=== PATIENT | female | born 1950 | race Caucasian/White ===

== ENCOUNTER → 2017-08-02 | Outpatient (CLI) | payer OTHER ==
[~2017-08-02] MED LIST: ABL5 PO; ADVIN25/60 INH; ALBUAER9 INH; BACLPOW PO; CALC500C70 PO; CHOL200010 PO; CITA40TA12 PO; CLEM2.68 PO; CLON1TAB3 PO; CLOP1TAB5 PO; CYAN1TAB2 SC; EZET10TA41 PO; FURO40TA3 PO; GABA600T PO; HYDR-3419 PO; LEVO112T2 PO; METO25TA3 PO; MONT1TAB3 PO; NXM/40 PO; POTA-335 PO; RANI300T2 PO; ROFL1TAB5 PO; TIOTCAP INH; TOPI100T20 PO
[2017-08-02 13:37] LABS: HEMATOCRIT 38.6 % (37-47); MEAN CORPUSCULAR HEMOGLOBIN 31.7 pg (25-34); MEAN CORPUSCULAR HGB CONC 32.6 g/dl (32-36); MEAN PLATELET VOLUME 9.8 fL (7.4-10.4); PLATELET COUNT 258 K/uL (130-400); RED BLOOD COUNT 3.98 M/uL (4.2-5.4); WHITE BLOOD COUNT 6.73 K/uL (4.8-10.8)
[2017-08-02 14:59] LABS: ALT/SGPT 14 U/L (12-78); BLOOD UREA NITROGEN 19 mg/dl (7-18); BUN/CREATININE RATIO 22.1 (10-20); CALCIUM 8.6 mg/dl (8.5-10.1); CARBON DIOXIDE 25 mmol/L (21-32); CHLORIDE 108 mmol/L (98-107); CREATININE 0.86 mg/dl (0.60-1.20); GLUCOSE 93 mg/dl (70-99); POTASSIUM 4.7 mmol/L (3.5-5.1); SODIUM 141 mmol/L (136-145)
[2017-08-02 15:11] LABS: AST/SGOT 7 U/L (15-37); CHOLESTEROL 133 mg/dl (0-200); CHOLESTEROL/HDL RATIO 3.4; HDL CHOLESTEROL 39 mg/dl; LDL CHOLESTEROL CALCULATED 71 mg/dl; TRIGLYCERIDES 115 mg/dl (0-150); VERY LOW DENSITY LIPOPROT CALC 23 mg/dl
== END | disposition home or self-care (01) ==
LOC: C.LABMFLN 11:34
PROVIDERS: ATTEND Internal Medicine Cardiovascular Disease
DX: E78.5 Hyperlipidemia, unspecified (principal); I34.0 Nonrheumatic mitral (valve) insufficiency; Z98.890 Other specified postprocedural states; I42.9 Cardiomyopathy, unspecified

== ENCOUNTER → 2018-03-06 | Outpatient (CLI) | payer OTHER ==
[2018-03-06 13:48] LABS: BLOOD UREA NITROGEN 18 mg/dl (7-18); CALCIUM 8.4 mg/dl (8.5-10.1); CARBON DIOXIDE 25 mmol/L (21-32); CREATININE 0.79 mg/dl (0.60-1.20); GLUCOSE 100 mg/dl (70-99); POTASSIUM 4.5 mmol/L (3.5-5.1); SODIUM 140 mmol/L (136-145)
== END | disposition home or self-care (01) ==
LOC: C.LABMFLN 10:06
PROVIDERS: ATTEND Physician Assistant
DX: I42.9 Cardiomyopathy, unspecified (principal)

== ENCOUNTER 2021-06-18 09:50 | Observation (INO) ==
[2021-06-18] MEDS ORDERED: LIDOCAINE 1% LOCAL 20 ML VIAL ONE (11:07)
[2021-06-18] MEDS ORDERED: VANCOMYCIN HCL 1000MG/20ML VIAL ONE (11:07)
[2021-06-18] MEDS ORDERED: WATER, STERILE FOR INJ 10 ML VIAL ONE (11:07)
[2021-06-18] MEDS ORDERED: BUPIVACAINE 0.25% 30 ML VIAL ONE (11:08)
[2021-06-18] MEDS ORDERED: MIDAZOLAM HCL 1 MG/ML 2ML VIAL ONE ×2 (11:40→12:13)
[2021-06-18] MEDS ORDERED: fentaNYL citrate 100 MCG/2 ML VIAL ONE (11:40)
--- NOTE | 2021-06-18 11:48 | History & Physical Report ---
Date of Service June 18, 2021 Assessment & Plan (1) Cardiomyopathy: Plan: 1. Nonischemic cardiomyopathy: She has a longstanding history of reduced LV systolic function. Her current degree of LV dysfunction puts her in a category of patients who may benefit from a prophylactic ICD. Her ejection fraction is less than 35%. His [place] heart Association class 2 symptoms. He has not had revascularization in the past 90 days or suffered a myocardial infarction in the past 45 days. She has an anticipated longevity greater than 1 year. 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 We had a conversation regarding the utility of a prophylactic ICD. We discussed the risks of the procedure as well as the option of not undergoing implant and the implications. At this point she seems interested in having the device pl aced in will make the appropriate arrangements for a single-chamber ICD. 2. Shortness of breath: She appears euvolemic. . 3. Mitral valve regurgitation s/p annuloplasty ring: Recent echo showed mitral valvular annuloplasty ring with mild MR. Will continue to monitor over time. SBE prophylaxis. 4. Dyslipidemia: Continue statin therapy. 5. Tobacco abuse: She quit smoking in 2019. 6. Hypertension: Blood pressure well controlled. Continue metoprolol. 7. TIA: Patient states she has had some cerebrovascular events and I suspect this is the indication for clopidogrel. History of Present Illness Chief Complaint: Dyspnea Primary Care Provider: RADHA Balderrama 71 year old woman with a history of a non-ischemic cardiomyopathy presents for an ICD implant Allergies Allergy/AdvReac Type Severity Reaction Status Date / Time acetaminophen Allergy Mild GI SYMPTOMS Verified 06/01/21 11:09 codeine Allergy Unknown rash and Verified 06/01/21 11:09 vomiting Sulfa (Sulfonamide Allergy Unknown RASH Verified 06/01/21 11:09 Antibiotics) Home Medications Medication Instructions Recorded Confirmed Type albuterol sulfate 90 mcg/actuation 2 puffs INHALATION Q4H PRN gm 05/18/19 06/18/21 History aerosol inhaler cyanocobalamin (vitamin B-12) 100 See Rx Instructions .ROUTE .COMPLEX 05/18/19 06/18/21 History mcg/mL injection syringe alendronate 70 mg tablet (Fosamax) 70 mg PO .once a week #12 tab 09/22/20 06/18/21 Rx clopidogrel 75 mg tablet 75 mg PO DAILY #90 tab 10/20/20 06/18/21 Rx furosemide 40 mg tablet 40 mg PO DAILY #90 tab 10/20/20 06/18/21 Rx hydroxyzine HCl 25 mg tablet 25 mg PO TID PRN #90 tab 10/23/20 06/18/21 Rx levothyroxine 88 mcg tablet 88 mcg PO DAILY #90 tab 02/17/21 06/18/21 Rx fexofenadine 180 mg tablet 180 mg PO DAILY #90 tab 03/03/21 06/18/21 Rx (Jessika Allergy) cholecalciferol (vitamin D3) 50 50 mcg PO DAILY #90 cap 03/04/21 06/18/21 Rx mcg (2,000 unit) capsule baclofen 10 mg tablet 10 mg PO DAILY PRN #60 tab 04/03/21 06/18/21 Rx metoprolol succinate 50 mg 50 mg PO DAILY #90 tab 04/08/21 06/18/21 Rx tablet,extended release 24 hr montelukast 10 mg tablet 10 mg PO DAILY #90 tab 05/07/21 06/18/21 Rx atorvastatin 80 mg tablet 80 mg PO DAILY #90 tab 05/13/21 06/18/21 Rx potassium chloride 20 mEq 20 meq PO DAILY #90 tab 05/13/21 06/18/21 Rx tablet,extended release trazodone 50 mg tablet 100 mg PO .at bedtime #180 tab 05/13/21 06/18/21 Rx pregabalin 50 mg capsule (Lyrica) 50 mg PO TID #90 cap 05/21/21 06/18/21 Rx quetiapine 25 mg tablet (Seroquel) 25 mg PO DAILY #90 tab 06/01/21 06/18/21 Rx topiramate 100 mg tablet See Rx Instructions .ROUTE 06/08/21 06/18/21 Rx .COMPLEX #180 tab duloxetine 60 mg capsule,delayed 60 mg PO DAILY #90 cap 06/15/21 06/18/21 Rx release (Cymbalta) Past Med/Surg History Medical History Age related osteoporosis Anemia Anxiety Benign essential hypertension Cardiomyopathy Chronic GERD Chronic obstructive pulmonary disease Hyperlipidemia Hypothyroidism Insomnia Lower back pain Migraine headache Mitral regurgitation Vitamin B12 deficiency Surgical History H/O section History of back surgery History of cardiac cath S/P arthroscopy of knee S/P mitral valve repair S/P rotator cuff repair S/P thyroidectomy Family History Mother Heart disease Stroke Aneurysm Father Osteoporosis Heart disease Social History Smoking Status: Current every day smoker Tobacco Type: E-cigarettes / Vaping Second Hand Exposure: No; Hx Alcohol Use: No Hx Substance Use: No Preferred Language: Cambodian Visual Impairment: No Limitations Hearing Ability: Normal Exterminator Helper Termite Required: No Beliefs That Will Affect Care: None marital status: Legally Current Living Situation: Family current occupational status: retired Other Information That Helps Us Care for You: No Feels Safe at Home: Yes Safety Concerns: Feels Safe At This Time Childhood Exposure to Second-Hand Smoke: No caffeine: Yes Dental Care, Regularly: No Physical Activity Frequency: Does not Exercise Seatbelt Use: always Sunscreen Use: Yes Assistive Devices: None Review of Systems Review of Systems: All systems reviewed & are unremarkable except as noted in HPI & below Physical Exam Physical Exam: Alert Answered all questions appropriately Normal respiratory effort Regular heart rhythm and normal rate Results & Data Results & Data ([facility]) Vital Signs (Past 12 Hours) Vital Signs Temp Pulse Resp BP Pulse Ox 06/18/21 10:10 36.3 C L 82 18 157/96 H 98 (1) Cardiomyopathy Cardiomyopathy type: unspecified Qualified Code(s): I42.9 - Cardiomyopathy, unspecified
--- NOTE | 2021-06-18 11:50 | Pre Anesthesia Assessment ---
Date of Service June 18, 2021 Pre Sedation Assessment Vital Signs Temp Pulse Resp BP Pulse Ox 06/18/21 10:10 36.3 C L 82 18 157/96 H 98 Cardiovascular + regular rate Respiratory + respiratory effort normal Pre-Sedation Airway Assessment Smoking Status: Current every day smoker Hx Sleep Apnea: No Hx Difficult Intubation: No Short, Thick Neck: No Thyromental Distance: > or= 3.5 Finger Breadths Oral Cavity: + Dentures Mallampati Class: II ASA: ASA3 NPO Status Date of Last Intake of Fluids: 06/18/21 Time of Last Intake of Fluids: 05:00 Date of Last Intake of Solid Food: 06/17/21 Time of Last Intake of Solid Foods: 19:00 Procedure Planning Contraindications for Sedation: none Current Medications Reviewed: Yes Notes The planned sedation has been discussed with the patient. Informed Consent was obtained. I have identified the patient, determined the appropriateness of sedation and have assessed the patient immediately prior to the procedure. All medicine(s) and interventions are by my order.
--- NOTE | 2021-06-18 12:50 | Post Anesthesia Assessment ---
Date of Service June 18, 2021 Post Sedation Assessment Vital Signs Temp Pulse Resp BP Pulse Ox 06/18/21 10:10 36.3 C L 82 18 157/96 H 98 Recovery Score Activity: Moves 4 extremities Respiration: Deep Breath/Cough Circulation: +/-20% PreAnes Value Consciousness: Fully Awake Oxygen Saturation: > 92% On Room Air Discharge Sedation Level of Care: Fast Track Phase II Post Sedation Plan On clinical assessment, the patient appears to have tolerated the sedation without complications. Patient is recovering as anticipated. Patient will continue to be monitored by nursing and may be discharged when sedation discharge criteria are met per below protocol. Upon Completions of procedure up to 15 minutes continue every 5 minute vital signs and the P.A.R. score; then discharge to a Phase I or Fast Track to Phase II per the following guidelines: * Discharge Patient to appropriate Phase II area if PAR is 8 or greater or return to pre- procedure baseline. The post - procedure orders will be as directed. * If PAR score is less than 8 or not return to pre-procedure baseline then patient will follow Phase I monitoring till PAR is reached for Phase II. The Phase I may be done in procedure room or may call to secure a Phase I area. * If naloxone or flumazenil are used for reversal, hold in Phase I for continued monitoring from when last reversal dose was given for a minimum of 60 minutes or longer pending the nurse and/or physician discretion of patient condition before discharge to Phase II. Please call the Sedation Physician to re-evaluate and complete post-note for discharge to Phase II area. Do NOT discharge from procedure sedation or Phase 1 until post- sedation evaluation note is complete by procedure /sedation MD Sedation Discharge Instructions to be given to the patient at discharge to home.
--- NOTE | 2021-06-18 12:50 | Electrophysiology Report ---
Date of Service June 18, 2021 Electrophysiology Procedure Electrophysiology Procedure Report Procedure performed: Implantation of single-chamber ICD Staff mechanical manager: Pratik Barnes MD Indication: The patient is a 71-year-old woman with a history of a cardiomyopathy. Chronic ejection fraction less than 35%. [place] Heart Association class II symptoms. On optimal medical therapy. No revascularization in the past 90 days or myocardial infarction in the past 40 days. She is an estimated longevity greater than 1 year was felt to be a good candidate for an ICD as primary prevention against sudden cardiac . QRS duration is normal and she is not a candidate for FISHER HAND LINE. Procedure in detail: The patient was informed of the risks benefits and alternatives to the intended procedure and she wished to proceed. She was taken to the electrophysiology suite in a fasting state. A preoperative antibiotic had been administered. The patient was monitored electrocardiographically throughout today's procedure and conscious sedation was administered per protocol. The left upper pectoral area is prepped and draped in usual sterile fashion. This area was anesthetized using subcutaneous administration of a xylocaine solution. An incision was made at this site and carried down to the prepectoralis fascia using sharp dissection. Electrocautery was also employed for dissection as well as for hemostasis. A device pocket was fashioned tissues above the pectoralis muscle. Subsequent to this maneuver the left axillary vein was accessed using modified Seldinger technique. Sheath was placed over guidewire at this site and used to facilitate passage of the pacing lead to the right ventricular apex under fluoroscopic guidance. Adequate sensing and threshold parameters were obtained prior to Active fixation of the lead to the endocardial surface. The proximal portion of the lead was then sutured the prepectoral fascia using nonabsorbable suture. The device pocket was irrigated with antibiotic solution. The lead was then attached to the device. The device and lead were then placed in the pocket and pocket was closed in 3 layers of absorbable suture. Steri-Strips and sterile dressing were applied. The device was tested noninvasively prior to conclusion the procedure. The patient tolerated procedure well there no immediate complications. Equipment used: New pulse generator: Polystyrene Bead Molder [employer]. Model number: [id number] serial number [id number] Right ventricular lead: Polystyrene Bead Molder [employer]. Model number: [id number] serial number [id number] Measured data: Right ventricular lead: R waves measured 13.8 mV. Pacing threshold was 0.4 V at 0.4 ms with a pacing impedance of 456 ohms Impression: Successful implantation of single-chamber ICD [facility] Electrophysiology codes ICD Procedure 1: ICD: 44519 Insert single or dual ICD system PG Moderate Sedation Codes Moderate Sedation Codes Procedure 1: Sedation/Anesthesia: 79174 Mod Sedation by the same physician;Init15 Min Child Age 5 & Up Procedure 2: Sedation/Anesthesia: 12752 Mod Sedation by the same physician; Ea [id number] Minutes
[2021-06-18] MEDS ORDERED: hydrOXYzine HCl 25 MG TAB PO PRN (13:11)
[2021-06-18] MEDS ORDERED: BACLOFEN 10 MG TAB PO PRN (13:11)
[2021-06-18] MEDS ORDERED: ALBUTEROL HFA 8 GM INHALER INH PRN (13:11)
[2021-06-18] MEDS: traMADol HCL 50 MG TABLET PO PRN ×2 (18:05→22:19)
[2021-06-18] MEDS: ceFAZolin 1000MG 1,000 MG/7.5 ML SYR IV SCH (20:13)
[2021-06-18] MEDS: PREGABALIN 50 MG CAP PO SCH (20:13)
[2021-06-18] MEDS ORDERED: traZODone HCL 100 MG TAB PO SCH (21:00)
[2021-06-19] MEDS: ceFAZolin 1000MG 1,000 MG/7.5 ML SYR IV SCH (04:12)
[2021-06-19] MEDS ORDERED: LEVOTHYROXINE SODIUM 88 MCG TABLET PO SCH (06:30)
[2021-06-19] MEDS: traMADol HCL 50 MG TABLET PO PRN (08:43)
[2021-06-19] MEDS: PREGABALIN 50 MG CAP PO SCH (08:43)
[2021-06-19] MEDS ORDERED: FEXOFENADINE HCL 180 MG TAB PO SCH (09:00)
[2021-06-19] MEDS ORDERED: QUEtiapine FUMARATE 25 MG TABLET PO SCH (09:00)
[2021-06-19] MEDS ORDERED: CHOLECALCIFEROL 1,000 UNITS 25 MCG TAB PO SCH (09:00)
[2021-06-19] MEDS ORDERED: ATORVASTATIN 40 MG TAB PO SCH (09:00)
[2021-06-19] MEDS ORDERED: MONTELUKAST SODIUM 10 MG TABLET PO SCH (09:00)
[2021-06-19] MEDS ORDERED: DULoxetine HCL 60 MG CAP PO SCH (09:00)
[2021-06-19] MEDS ORDERED: POTASSIUM CHLORIDE CRTAB 20 MEQ TABCR PO SCH (09:00)
[2021-06-19] MEDS ORDERED: METOPROLOL SUCC 50MG EXT REL TAB PO SCH (09:00)
[2021-06-19] MEDS ORDERED: CLOPIDOGREL BISULFATE 75 MG TAB PO SCH (09:00)
[2021-06-19] MEDS ORDERED: FUROSEMIDE 40 MG TAB PO SCH (09:00)
--- NOTE | 2021-06-19 09:22 | Discharge Summary ---
Date of Service June 19, 2021 Admission HPI Per Admitting Provider 71 year old woman with a history of a non-ischemic cardiomyopathy presents for an ICD implant Principal Diagnosis Cardiomyopathy. Discharge Exam at the time of discharge the implant site appear to be healing well. No erythema. No hematoma. No drainage. No ecchymosis. Discharge Data Allergies Allergy/AdvReac Type Severity Reaction Status Date / Time acetaminophen Allergy Mild GI SYMPTOMS Verified 06/01/21 11:09 codeine Allergy Unknown rash and Verified 06/01/21 11:09 vomiting Sulfa (Sulfonamide Allergy Unknown RASH Verified 06/01/21 11:09 Antibiotics) Procedures Performed Operation Date: 06/18/21 11:00 Actual Procedures p ICD Insertion Single or Dual - Bijan Barnes MD Ordered Studies 06/18/21 06:30 EP Lab Images for PACS ONCE 06/18/21 11:50 CL Cath Imgs for PACS use only Routine Hospital Course (1) Cardiomyopathy: On the day of admission the patient underwent implantation of single- chamber ICD. There are no significant vents overnight. On the morning of discharge the chest x-ray was normal with good lead position and no pneumothorax. Wound evaluation give the absence of hematoma, drainage or infection. Device interrogation revealed normal function. Patient was feeling well and ambulatory. Total Time Total Time Spent Total Time Spent (In Minutes): 15 Discharge Plan Discharge Items Patient Disposition: Home - Self-Care Reason For Visit: ICD IMPLANT Discharge Diagnosis: Cardiomyopathy Activity: Per Instructions section Activity Comment: no lifting left arm above the shoulder or behind the neck for 6 weeks Lifting: No more than 10 pounds Bathing: Keep incision dry Bathing Comment: keep wound dry and Steri-Strips intact until follow-up appointment Driving/Machine Use: No limitations Non-emergency contact: Reservoir Caretaker Call non-emergency contact if: you have any medication questions, your pain is concerning for you, you have a fever, your wound has increased redness and your wound has increased drainage Follow-up/Referrals: Yareli Arechiga CRNP [Primary Care Provider] - Diet: Heart Healthy Addtl Attending Provider Instructions: none Pending Studies at Discharge: No Stand-Alone Forms: My Test[employer]tv, Smoking Cessation Medications and DC Order Prescriptions: Continued alendronate [Fosamax] 70 mg tablet 70 mg PO .once a week Qty: 12 RF: 1 clopidogrel 75 mg tablet 75 mg PO DAILY Qty: 90 RF: 1 furosemide 40 mg tablet 40 mg PO DAILY Qty: 90 RF: 1 hydroxyzine HCl 25 mg tablet 25 mg PO TID PRN (Reason: anxiety) Qty: 90 RF: 2 levothyroxine 88 mcg tablet 88 mcg PO DAILY Qty: 90 RF: 1 cholecalciferol (vitamin D3) 50 mcg (2,000 unit) capsule 50 mcg PO DAILY Qty: 90 RF: 1 baclofen 10 mg tablet 10 mg PO DAILY PRN (Reason: back pain) Qty: 60 RF: 0 metoprolol succinate 50 mg tablet extended release 24 hr 50 mg PO DAILY Qty: 90 RF: 3 montelukast 10 mg tablet 10 mg PO DAILY Qty: 90 RF: 1 trazodone 50 mg tablet 100 mg PO .at bedtime Qty: 180 RF: 1 atorvastatin 80 mg tablet 80 mg PO DAILY Qty: 90 RF: 1 potassium chloride 20 mEq tablet extended release 20 meq PO DAILY Qty: 90 RF: 1 pregabalin [Lyrica] 50 mg capsule 50 mg PO TID Qty: 90 RF: 0 topiramate 100 mg tablet See Rx Instructions .ROUTE .COMPLEX Qty: 180 RF: 3 duloxetine [Cymbalta] 60 mg capsule,delayed release(DR/EC) 60 mg PO DAILY Qty: 90 RF: 1 fexofenadine [Jessika Allergy] 180 mg tablet 180 mg PO DAILY Qty: 90 RF: 0 quetiapine [Seroquel] 25 mg tablet 25 mg PO DAILY Qty: 90 RF: 3 albuterol sulfate 90 mcg/actuation HFA aerosol inhaler 2 puffs inhalation Q4H PRN (Reason: shortness of breath or wheezing) RF: 0 cyanocobalamin (vitamin B-12) 100 mcg/mL syringe See Rx Instructions .ROUTE .COMPLEX RF: 0 Discharge Orders: Discharge Order (Routine); Ordered 06/19/21 Ordered By: Bijan Barnes Admission Data Admit Date/Time: 06/18/21 15:49 Attending Provider: Bijan Barnes Admit Provider: Bijan Barnes Primary Care Provider: Yareli Arechiga Coding Level of Care Code 96580 OBS Care - Discharge Diagnoses Cardiomyopathy I42.9 Cardiomyopathy type: unspecified
--- NOTE | 2021-06-19 09:29 | XRay Report ---
XR chest 2V PA/lateral CLINICAL HISTORY: EXACT TIME ORDERED Evaluate for pneumothorax and l . STATUS POST PACEMAKER INSERTIO N. COMPARISON STUDY: No previous studies for comparison. FINDINGS: No pneumothorax. No pleural effusion. No large infiltrates or consolidative lesions are seen. Cardiomediastinal silhouette is within normal limits in size. No significant pulmonary vascular congestion.. Aorta is calcified. Osseous structures: Multilevel degenerative changes of the spine. Exaggerated thoracic kyphosis and few compression fracture deformities within mid thoracic spine. Midline sternotomy wires are seen. Left-sided single lead AICD seen with battery pack partially obscuring left lung parenchyma. IMPRESSION: 1. Status post left-sided AICD placement. No evidence of pneumothorax. 2. No infiltrates or consolidative lesions. 3. Atherosclerosis. 4. The rest of findings as above. ACT 112: Negative or not required by law. The above report was generated using voice recognition software. It may contain grammatical, syntax o r spelling errors. Electronically signed by: Tia Houston DO 06/19/2021 9:27 AM
[2021-06-19 10:54] VITALS: BP 131/80; TEMP 98.1; O2SAT 93
[2021-06-19 11:58] VITALS: PULSE 78
--- NOTE | 2021-06-20 06:32 | Electrocardiogram Report ---
Test Reason : Blood Pressure : / mmHG Vent. Rate : 079 BPM Atrial Rate : 079 BPM P-R Int : 256 ms QRS Dur : 108 ms QT Int : 406 ms P-R-T Axes : 040 012 015 degrees QTc Int : 465 ms Sinus rhythm with 1st degree A-V block Cannot rule out Inferior infarct , age undetermined Abnormal ECG No previous ECGs available Confirmed by Forest Ennis ([id number]) on 06/20/2021 6:32:08 AM Referred By: Bijan Barnes Confirmed By:Forest Ennis
[2021-06-22] MEDS ORDERED: ALENDRONATE SODIUM 70 MG TAB PO SCH (06:00)
== END 2021-06-19 13:15 | disposition home or self-care (01) ==
LOC: EP 09:50 → 2S 09:50
PROC: EPB.ICD (2021-06-18 11:00)
DX: E53.8 Deficiency of other specified B group vitamins; Z88.2 Allergy status to sulfonamides; I34.0 Nonrheumatic mitral (valve) insufficiency; F17.290 Nicotine dependence, other tobacco product, uncomplicated; R06.02 Shortness of breath; E03.9 Hypothyroidism, unspecified; J44.9 Chronic obstructive pulmonary disease, unspecified; Z79.899 Other long term (current) drug therapy; Z79.51 Long term (current) use of inhaled steroids; K21.9 Gastro-esophageal reflux disease without esophagitis; Z79.890 Hormone replacement therapy; I10 Essential (primary) hypertension; I42.8 Other cardiomyopathies; E78.5 Hyperlipidemia, unspecified; Z20.822 Contact with and (suspected) exposure to COVID-19; Z88.5 Allergy status to narcotic agent